=== PATIENT | male | born 1980 | race Caucasian/White ===

== ENCOUNTER 2021-08-31 20:00 | Emergency (ER) | payer BC, OTHER ==
[2021-08-31] MEDS ORDERED: Sodium Chloride 0.9% 10 ML Syringe FLUSH PRN (20:09)
--- NOTE | 2021-08-31 20:09 | EDM.PDOC ---
ED HPI GENERAL MEDICAL PROBLEM - General Chief Complaint: General Stated Complaint: BLURRED VISION, CHEST PAIN, ELEV. BLOOD PRESSURE Time Seen by Provider: 08/31/21 20:01 Source of Information: Reports: Patient History Limitations: Reports: No Limitations - History of Present Illness INITIAL COMMENTS - FREE TEXT/NARRATIVE: 41 YO WM PRESENTS TO ER COMPLAINING OF AN EPISODE OF BLURRED VISION WITH LEFT SIDED CHEST PAIN WHICH BEGAN AROUND 7PM TONIGHT WHILE DRIVING HOME FROM [place]. PT REPORTS ONCE HE GOT HOME HE CHECKED HIS BLOOD PRESSURE AND FOUND IT TO BE ELEVATED PROMPTING HIM TO CALL HIS MOM AND COME TO ER FOR EVALUATION. PT WITH PMH OF HYPERTENSION, HYPERLIPIDEMIA AND ELEVATED TRIGLYCERIDES. PT REPORTS HE HAS BEEN COMPLIANT WITH HIS HOME MEDICATIONS. PT DENIES DIAPHORESIS, NO NAUSEA, NO DIZZINESS, NO SHORTNESS OF BREATH. PT REPORTS BLURRED VISION AND CHEST PAIN HAVE MOSTLY RESOLVED PRIOR TO ARRIVAL. PT DENIES ARM OR JAW PAIN. PT WITH FAMILY HISTORY OF HYPERTENSION WITHOUT CAD. Onset: Sudden Duration: Hour(s): (1), Resolved Prior to Arrival Location: Reports: Head, Chest Quality: Reports: Ache Severity: Mild Improves with: Reports: None Worsens with: Reports: None Associated Symptoms: Reports: Chest Pain, Headaches. Denies: Confusion, Diaphoresis, Nausea/Vomiting, Shortness of Breath, Syncope Middle Chest Pain Score (Numeric/FACES): 1 - Related Data Allergies Allergy/AdvReac Type Severity Reaction Status Date / Time ceftriaxone [From Rocephin] Allergy Cannot Verified 08/31/21 20:36 Remember Home Meds: Home Meds Albuterol Sulfate [Albuterol Sulfate HFA] 2 puff INH Q6H PRN 08/31/21 [History] Baclofen 10 mg PO BID 08/31/21 [History] Camphor/Menthol [Sarna Lotion] 222 ml TP ASDIRECTED PRN 08/31/21 [History] Etodolac [Lodine] 400 mg PO BID 08/31/21 [History] Fenofibrate Nanocrystallized [Fenofibrate] 96 mg PO BEDTIME 08/31/21 [History] Gabapentin [Neurontin] 1,600 mg PO BEDTIME 08/31/21 [History] Metoprolol Tartrate [Lopressor] 12.5 mg PO BID 08/31/21 [History] Multivitamin with Minerals [Multivitamins with Minerals] 1 each PO DAILY 08/31/21 [History] [place]-3 Fatty Acids/Fish Oil [Fish Oil 1,000 mg Capsule] 2 cap PO BID 08/31/21 [History] Simvastatin [Zocor] 10 mg PO BEDTIME 08/31/21 [History] Triamcinolone Acetonide [Triamcinolone Acetonide 0.1% Oint] 1 applic TOP BID PRN 08/31/21 [History] traMADol [Ultram] 50 mg PO BID 08/31/21 [History] ED ROS GENERAL - Review of Systems Review Of Systems: See Below Constitutional: Reports: No Symptoms HEENT: Reports: Vision Change Respiratory: Reports: No Symptoms Cardiovascular: Reports: Chest Pain, Blood Pressure Problem Endocrine: Reports: No Symptoms GI/Abdominal: Reports: No Symptoms : Reports: No Symptoms Musculoskeletal: Reports: No Symptoms Skin: Reports: No Symptoms Neurological: Reports: Headache Psychiatric: Reports: No Symptoms Hematologic/Lymphatic: Reports: No Symptoms Immunologic: Reports: No Symptoms ED EXAM, GENERAL - Physical Exam Exam: See Below Exam Limited By: No Limitations General Appearance: Alert, WD/WN, No Apparent Distress Eye Exam: Bilateral Eye: EOMI, PERRL Head: Atraumatic, Normocephalic Neck: Normal Inspection, Supple, Non-Tender, Full Range of Motion Respiratory/Chest: No Respiratory Distress, Lungs Clear, Normal Breath Sounds, N o Accessory Muscle Use, Chest Non-Tender Cardiovascular: Normal Peripheral Pulses, Regular Rate, Rhythm, No Edema, No Gallop, No JVD, No Murmur, No Rub GI/Abdominal: Normal Bowel Sounds, Soft, Non-Tender, No Organomegaly, No Distention, No Abnormal Bruit, No Mass Back Exam: Normal Inspection, Full Range of Motion, NT Extremities: Normal Inspection, Normal Range of Motion, Non-Tender, Normal Capillary Refill, No Pedal Edema Neurological: Alert, Oriented, CN II-XII Intact, Normal Cognition, Normal Gait, No Motor/Sensory Deficits Psychiatric: Normal Affect, Normal Mood Skin Exam: Warm, Dry, Intact, Normal Color, No Rash Lymphatic: No Adenopathy #1 Interpretation EKG Date: 08/31/21 Time: 20:33 Rhythm: NSR Rate (Beats/Min): 61 [place]: Normal P-Wave: Present QRS: Normal ST-T: Normal QT: Normal Comparison: NA - No Prior EKG Course - Vital Signs Last Recorded V/S: Last Vital Signs Temp 97.2 F 08/31/21 20:00 Pulse 64 08/31/21 20:00 Resp 16 08/31/21 20:00 BP 186/105 H 08/31/21 20:00 Pulse Ox 97 08/31/21 20:00 - Orders/Labs/Meds Orders: Active Orders 24 hr Category Date Time Status Cardiac Monitoring [RC] . DIRECTED Care 08/31/21 20:09 Active Peripheral IV Care [RC] . DIRECTED Care 08/31/21 20:10 Active Chest 2V [CR] Stat Exams 08/31/21 20:09 Ordered Sodium Chloride 0.9% [Saline Flush] Med 08/31/21 20:09 Active 10 ml FLUSH Q8HR PRN Peripheral IV Insertion Adult [OM.PC] Routine Oth 08/31/21 20:09 Ordered EKG 12 Lead [EK] Stat Ther 08/31/21 20:09 Ordered Medication Orders Sodium Chloride (Sodium Chloride 0.9% 10 Ml Syringe) 10 ml FLUSH Q8HR PRN PRN Reason: keep vein open Labs: Laboratory Tests 08/31/21 08/31/21 Range/Units 20:25 20:25 WBC 6.09 (5.00-10.00) 10^3/uL RBC 4.88 (4.50-6.00) 10^6/uL Hgb 13.5 (13.0-17.0) g/dL Hct 39.7 L (40.0-52.0) % MCV 81.4 L (82.0-92.0) fL MCH 27.7 (27.0-31.0) pg MCHC 34.0 (32.0-36.0) g/dL RDW 12.6 (11.5-14.5) % Plt Count 252 (150-400) 10^3/uL MPV 9.6 (7.4-10.4) fL Immature Gran % (Auto) 0.2 (0.0-5.0) % Neut % (Auto) 43.8 L (50.0-70.0) % Lymph % (Auto) 45.6 H (20.0-40.0) % [place] % (Auto) 7.9 (2.0-8.0) % Eos % (Auto) 2.0 (1.0-3.0) % Baso % (Auto) 0.5 (0.0-1.0) % Neut # (Auto) 2.67 (2.50-7.00) 10^3/uL Lymph # (Auto) 2.78 (1.00-4.00) 10^3/uL [place] # (Auto) 0.48 (0.10-0.80) 10^3/uL Eos # (Auto) 0.12 (0.10-0.30) 10^3/uL Baso # (Auto) 0.03 (0.00-0.10) 10^3/uL Immature Gran # (Auto) 0.01 (0.00-0.50) 10^3/uL Sodium 143 (136-145) mmol/L Potassium 3.3 L (3.5-5.1) mmol/L Chloride 104 (98-107) mmol/L Carbon Dioxide 28.7 (21.0-32.0) mmol/L Anion Gap 13.6 (5-15) mmol/L BUN 17 (7-18) mg/dL Creatinine 0.92 (0.51-1.17) mg/dL Est Cr Clr Drug Dosing TNP Estimated GFR (MDRD) > 60 mL/min Glucose 118 (70-140) mg/dL Calcium 9.1 (8.7-10.3) mg/dL Total Bilirubin 0.4 (0.2-1.0) mg/dL AST 21 (15-37) U/L ALT 34 (14-63) U/L Alkaline Phosphatase 34 L (46-116) U/L Troponin I High Sens 8.900 (0-76.000) pg/mL Total Protein 7.5 (6.4-8.2) g/dL Albumin 4.07 (3.40-5.00) g/dL Meds: Medications Generic Name Dose Route Start Last Admin Trade Name Freq PRN Reason Stop Dose Admin Sodium Chloride 10 ml 08/31/21 20:09 Sodium Chloride 0.9% 10 Ml Syringe FLUSH Q8HR PRN keep vein open Discontinued Medications Generic Name Dose Route Start Last Admin Trade Name Freq PRN Reason Stop Dose Admin Aspirin 324 mg 08/31/21 20:37 08/31/21 21:05 Aspirin 81 Mg Tab.Chew PO 10/12/21 20:38 324 mg ONETIME ONE Administration Nitroglycerin 1 gm 08/31/21 20:37 08/31/21 21:06 Nitroglycerin 2% Oint 1 Gm Ud Packet TOP 08/31/21 20:38 1 gm ONETIME ONE Administration - Radiology Interpretation Free Text/Narrative:: CT HEAD-NO ACUTE PROCESS CXR- NO ACUTE PROCESS - Re-Assessments/Exams Free Text/Narrative Re-Assessment/Exam: 08/31/21 21:36 SUGGESTED HOSPITALIZATION FOR 23 HOUR OBS FOR HYPERTENSION AND CHEST PAIN. PT STATES HE WOULD LIKE TO GO HOME AND FOLLOW UP WITH [facility] IN AM FOR FURTHER EVALUATION AND TREATMENT. PT UNDERSTANDS RISK OF ISCHEMIA AND PROLONGED HYPERTENSION ON END ORGAN DAMAGE. PT ALERT AND ORIENTED AND REASONABLE IN HIS DECISION MAKING. WILL DISCHARGE PATIENT TO FOLLOW UP AT [facility]. INSTRUCTED TO RETURN TO ER FOR WORSENING SYMPTOMS Departure - Departure Time of Disposition: 21:41 Disposition: Home, Self-Care 01 Condition: Good Clinical Impression: Hypertensive urgency - Discharge Information Instructions: Managing Your Hypertension Referrals: Sarita Candelaria MD [Primary Care Provider] - Forms: ED Department Discharge Additional Instructions: 1. DISCHARGE HOME 2. FOLLOW UP WITH [facility] IN AM FOR FURTHER EVALUATION AND TREATMENT- 2D ECHO; NUCLEAR STRESS TEST 3. CONSIDER INCREASING METOPROLOL TO 25MG IN AM AND 12.5MG IM PM 4. RETURN TO ER FOR WORSENING SYMPTOMS 5. CONSIDER ASPIRIN 325MG DAILY Sepsis Event Note (ED) - Focused Exam Vital Signs: Vital Signs Temp Pulse Resp BP Pulse Ox 08/31/21 20:00 97.2 F 64 16 186/105 H 97 - My Orders Last 24 Hours: My Active Orders 08/31/21 20:09 Cardiac Monitoring [RC] . DIRECTED Chest 2V [CR] Stat Sodium Chloride 0.9% [Saline Flush] 10 ml FLUSH Q8HR PRN Peripheral IV Insertion Adult [OM.PC] Routine EKG 12 Lead [EK] Stat 08/31/21 20:10 Peripheral IV Care [RC] . DIRECTED - Assessment/Plan Last 24 Hours: My Active Orders 08/31/21 20:09 Cardiac Monitoring [RC] . DIRECTED Chest 2V [CR] Stat Sodium Chloride 0.9% [Saline Flush] 10 ml FLUSH Q8HR PRN Peripheral IV Insertion Adult [OM.PC] Routine EKG 12 Lead [EK] Stat 08/31/21 20:10 Peripheral IV Care [RC] . DIRECTED Assessment:: 1. HYPERTENSIVE URGENCY 2. CHEST PAIN 3. BLURRED VISION Plan: 1. DISCHARGE HOME 2. [facility] FOR [facility]AL[facility] AND TREATMENT- 2D ECHO; NUCLEAR STRESS TEST 3. CONSIDER INCREASING METOPROLOL TO 25MG IN AM AND 12.5MG IM PM 4. RETURN TO ER FOR WORSENING SYMPTOMS 5. CONSIDER ASPIRIN 325MG DAILY
[2021-08-31] MEDS ORDERED: Nitroglycerin 2% Oint 1 GM UD Packet TOP ONE (20:37)
[2021-08-31] MEDS ORDERED: Aspirin 81 MG Tab.Chew PO ONE (20:37)
--- NOTE | 2021-08-31 21:12 | CT ---
[id number] CT/CT Head WO IV EXAM: NONCONTRAST HEAD CT INDICATION: HYPERTENSION COMPARISON: None. DISCUSSION: The ventricles and sulci are normal in size and configuration. Mild multifocal white matter hypoattenuation is nonspecific, but generally ascribed to chronic small vessel ischemia. No mass effect or midline shift. No acute hemorrhage or extra-axial fluid collection. No acute territorial infarct is identified. A limited look at the orbits and paranasal sinuses is unremarkable. IMPRESSION: 1. No acute findings. Tremaine Garcia MD 08/31/215 Thank you for allowing us to participate in the care of your patient.
[2021-08-31 21:27] LABS: ANION GAP 13.6 mmol/L (5-15); CHLORIDE,CL 104 mmol/L (98-107); SODIUM,NA 143 mmol/L (136-145)
== END 2021-08-31 21:56 | disposition home or self-care (01) ==
LOC: KA.ED 20:00
DX: I16.0 Hypertensive urgency (principal); Z88.1 Allergy status to other antibiotic agents
CPT/HCPCS: 36415; 70450; 71046; 80053; 84484; 85025; 99284; 99285-25; A9270-GY

== ENCOUNTER 2023-06-19 23:54 | Emergency (ER) | payer OTHER ==
[2023-06-20] MEDS ORDERED: Sodium Chloride 0.9% 10 ML Syringe FLUSH PRN (00:28)
[2023-06-20] MEDS ORDERED: Sodium Chloride 0.9% 1,000 ML IV ONE (00:29)
[2023-06-20] MEDS ORDERED: Ketorolac 30 MG/ML SDV IVPUSH ONE (00:29)
[2023-06-20 00:48] LABS: BASOPHILS ABSOLUTE AUTO 0.02 10^3/uL (0.00-0.10); BASOPHILS PERCENT AUTO 0.3 % (0.0-1.0); EOSINOPHILS ABSOLUTE AUTO 0.08 10^3/uL (0.10-0.30); EOSINOPHILS PERCENT AUTO 1.1 % (1.0-3.0); HEMATOCRIT 39.9 % (40.0-52.0); HEMOGLOBIN 13.6 g/dL (13.0-17.0); IMMATURE GRAN ABSOLUTE AUTO 0.02 10^3/uL (0.00-0.50); IMMATURE GRAN PERCENT AUTO 0.3 % (0.0-5.0); LYMPHOCYTES ABSOLUTE AUTO 2.01 10^3/uL (1.00-4.00); LYMPHOCYTES PERCENT AUTO 28.4 % (20.0-40.0); MEAN CORPUSCULAR HEMOGLOBIN 27.9 pg (27.0-31.0); MEAN CORPUSCULAR HGB CONC 34.1 g/dL (32.0-36.0); MEAN CORPUSCULAR VOLUME 81.8 fL (82.0-92.0); MEAN PLATELET VOLUME 9.6 fL (7.4-10.4); MONOCYTES ABSOLUTE AUTO 0.56 10^3/uL (0.10-0.80); MONOCYTES PERCENT AUTO 7.9 % (2.0-8.0); NEUTROPHILS ABSOLUTE AUTO 4.39 10^3/uL (2.50-7.00); PLATELET COUNT,PLT 268 10^3/uL (150-400); RED BLOOD CELL COUNT 4.88 10^6/uL (4.50-6.00); RED CELL DISTRIBUTION WIDTH 12.5 % (11.5-14.5); WHITE BLOOD CELL COUNT,WBC 7.08 10^3/uL (5.00-10.00)
[2023-06-20 00:50] LABS: APPEARANCE,URINE CLEAR (CLEAR); BILIRUBIN,URINE NEGATIVE (NEGATIVE); COLOR,URINE YELLOW (YELLOW); GLUCOSE,URINE NEGATIVE (NEGATIVE); KETONES,URINE NEGATIVE (NEGATIVE); LEUKOCYTE ESTERASE,URINE NEGATIVE (NEGATIVE); NITRITE,URINE NEGATIVE (NEGATIVE); OCCULT BLOOD,URINE SMALL (NEGATIVE); PH,URINE 7.5 (5.0-9.0); PROTEIN,URINE NEGATIVE (NEGATIVE); UROBILINOGEN,URINE 0.2 E.U./dL (0.2-1.0)
[2023-06-20 00:59] LABS: BACTERIA,URINE FEW /HPF (NONE TO FEW); EPITHELIAL CELLS,URINE RARE /LPF; RBC,URINE 0-5 /HPF (0-5); WBC,URINE 0-5 /HPF (0-5)
[2023-06-20 01:00] LABS: AMORPHOUS SEDIMENT,URINE FEW /HPF (0/HPF)
[2023-06-20 01:17] LABS: ALBUMIN 4.19 g/dL (3.40-5.00); ANION GAP 13.3 mmol/L (5-15); BILIRUBIN TOTAL 0.3 mg/dL (0.2-1.0); CALCIUM 9.3 mg/dL (8.7-10.3); CARBON DIOXIDE,CO2 28.4 mmol/L (21.0-32.0); CREATININE 0.99 mg/dL (0.51-1.17); EST CRCL DRUG DOSING (CG) 104.58 mL/min; POTASSIUM,K 3.7 mmol/L (3.5-5.1); PROTEIN TOTAL,TP 7.4 g/dL (6.4-8.2)
== END 2023-06-20 02:20 | disposition home or self-care (01) ==
LOC: KA.ED 23:54
DX: N13.1 Hydronephrosis with ureteral stricture, not elsewhere classified (principal); R60.0 Localized edema; I10 Essential (primary) hypertension; E66.9 Obesity, unspecified; Z68.34 Body mass index [BMI] 34.0-34.9, adult; Z88.1 Allergy status to other antibiotic agents; Z79.899 Other long term (current) drug therapy
CPT/HCPCS: 36415; 74176; 80053; 81001; 85025; 99284; J1885; J7030

== ENCOUNTER 2023-09-18 18:50 | Emergency (ER) | payer OTHER | END 2023-09-18 19:55 | disposition home or self-care (01) | LOC: KA.ED 18:50 | DX: M20.012 Mallet finger of left finger(s) (principal); I10 Essential (primary) hypertension; E66.9 Obesity, unspecified; Z68.34 Body mass index [BMI] 34.0-34.9, adult; Z88.1 Allergy status to other antibiotic agents; Z79.899 Other long term (current) drug therapy | CPT/HCPCS: 73140-F3; 99283 ==